=== PATIENT | female | born 1935 | race Hispanic/Latino ===

== ENCOUNTER 2020-05-24 14:41 | Emergency (ER) | payer SELFPAY ==
--- NOTE | 2020-05-24 15:09 | Emergency Department Report ---
ED Neuro Deficit HPI - General Chief Complaint: Neuro Symptoms/Deficit Stated Complaint: STROKE Time Seen by Provider: 05/24/20 14:42 - History of Present Illness Initial Comments: [facility] Date of Service: 05/24/2020 14:25:06 Impression: R55 - Syncope (blackout, fainting, vasovagal attack) Comments/Sign-Out: the patient had an episode of syncope with potentially a low blood pressure in the field per EMS. The patient endorses feeling lightheaded but not passing out but she is not a very reliable historian. She has a left facial droop but is not clear whether or not this is old or new. If family says this is a new finding she's never had before of course she may need additional neurodiagnostic testing and stroke workup. At this is a chronic finding it sounds like the patient syncopized and needs a syncope workup in isolation. No role for acute thrombolytic therapy exam is not consistent with large vessel occlusion. It sounds like she may have had low blood pressure causing her syncope although again more information from family will be helpful.if she truly has had multiple prior ischemic strokes she should be on aspirin unless there is a contraindication Metrics: Last Known Well: 05/24/2020 14:00:00 [facility] Notification Time: 05/24/2020 14:24:35 Arrival Time: 05/24/2020 14:41:00 Stamp Time: 05/24/2020 14:25:06 Time First Login Attempt: 05/24/2020 14:28:43 Symptoms: syncope facial droop NIHSS Start Assessment Time: 05/24/2020 14:56:15 Patient is not a candidate for Alteplase/Activase. Patient was not deemed candidate for Alteplase/Activase thrombolytics because of the patient's only focal deficit is a facial droop the chronicity of which is not known. CT head showed no acute hemorrhage or acute core infarct. Clinical Presentation is not Suggestive of Large Vessel Occlusive Disease Radiologist was not called back for review of advanced imaging because na ED Physician notified of diagnostic impression and management plan on 05/24/2020 15:08:10 Our recommendations are outlined below. Routine Consultation with Inhouse Neurology for Follow up Care Sign Out: Discussed with Emergency Department Provider History of Present Illness: Patient is a 85 year old Female. Patient was brought by EMS for symptoms of syncope facial droop the patient is an 85-year-old woman who cannot provide much in the way meaningful history. She's had multiple prior strokes and has been identification card which is a possible right facial asymmetry. She has a left facial droop per EMS the chronicity of this isn't known. Directly called out to the house for syncopal spell. The patient she says she felt lightheaded and she doesn't think she passed out. She is not aware of any focal deficit even though her left face is drooping. She denies taking any medications for anything including no aspirin Plavix or any other blood thinners in spite of a history of multiple prior strokes. She is not been to this hospital system before all of this needs to be confirmed with family. Past Medical History: Stroke There is NO history of Hypertension There is NO history of Diabetes Mellitus There is NO history of Hyperlipidemia There is NO history of Atrial Fibrillation Anticoagulant use: No Antiplatelet use: No Examination: BP(130s systolic), Pulse(65), Blood Glucose(179) 1A: Level of Consciousness - Alert; keenly responsive + 0 1B: Ask Month and Age - Both Questions Right + 0 1C: Blink Eyes & Squeeze Hands - Performs Both Tasks + 0 2: Test Horizontal Extraocular Movements - Normal + 0 3: Test Visual Drummond - No Visual Loss + 0 4: Test Facial Palsy (Use Grimace if Obtunded) - Partial paralysis (lower face) + 2 5A: Test Left Arm Motor Drift - No Drift for 10 Seconds + 0 5B: Test Right Arm Motor Drift - No Drift for 10 Seconds + 0 6A: Test Left Leg Motor Drift - No Drift for 5 Seconds + 0 6B: Test Right Leg Motor Drift - No Drift for 5 Seconds + 0 7: Test Limb Ataxia (FNF/Heel-Lamb) - No Ataxia + 0 8: Test Sensation - Normal; No sensory loss + 0 9: Test Language/Aphasia - Normal; No aphasia + 0 10: Test Dysarthria - Normal + 0 11: Test Extinction/Inattention - No abnormality + 0 NIHSS Score: 2 Patient/Family was informed the Neurology Consult would happen via TeleHealth consult by way of interactive audio and video telecommunications and consented to receiving care in this manner. Due to the immediate potential for life-threatening deterioration due to underlying acute neurologic illness, I spent 45 minutes providing critical care. This time includes time for face to face visit via telemedicine, review of medical records, imaging studies and discussion of findings with providers, the patient and/or family. Dr Tasia Hankins [facility] Case [id number] ED Review of Systems ROS: Stated complaint: STROKE Other details as noted in HPI ED Neuro Physical Exam - General Suspected Stroke: No Critical care attestation.: If time is entered above; I have spent that time in minutes in the direct care of this critically ill patient, excluding procedure time. ED Disposition Clinical Impression: Syncope Qualifiers: Syncope type: unspecified Qualified Code(s): R55 - Syncope and collapse Disposition: -09 OP ADMIT IP TO THIS HOSP Is pt being admited?: Yes Condition: Stable Instructions: Syncope (ED)
--- NOTE | 2020-05-24 15:20 | Cat Scan Report ---
CT head/brain wo con INDICATION / CLINICAL INFORMATION: 85 years Female; Stroke symptoms. TECHNIQUE: Routine CT head without contrast. All CT scans at this location are performed using CT dos e reduction for ALARA by means of automated exposure control. COMPARISON: None. FINDINGS: BRAIN / INTRACRANIAL CONTENTS: There is extensive cerebral white matter disease most consistent with advanced microvascular angiopathy. There are old infarcts along the anterior left thalamus and right internal capsule. Is also old infarct involving right occipital lobe with encephalomalacia. There is no clear CT evidence of acute intracranial hemorrhage or significant mass effect. There is mild cerebral atrophy with associated mild prominence of the ventricular system ORBITS: No significant abnormality of visualized orbits. SINUSES / MASTOIDS: No significant abnormality in the visualized paranasal sinuses or mastoid air charisse ls. CRANIOCERVICAL JUNCTION: No significant abnormality. ADDITIONAL FINDINGS: None. IMPRESSION: 1. There is extensive microvascular angiopathy and multiple old infarcts as described without CT evid ence of acute intracranial hemorrhage. The study was specified as code stroke and called to Dr. Melendez in the ER at 10:14 PM Central standard time. Signer Name: Kenneth Jung MD Signed: 05/24/2020 3:16 PM Workstation Name: [id number]
--- NOTE | 2020-05-24 15:27 | Emergency Department Report ---
HPI - General Chief Complaint: Neuro Symptoms/Deficit Time Seen by Provider: 05/24/20 14:42 - HPI HPI: This is an 85-year-old female who presents to the emergency department via EMS from home with the initial complaint of a left-sided facial droop and possible syncopal episode. The patient says that she did not pass out but that she was at the dinner table and felt lightheaded but otherwise remembers the event. Initially EMS called and said that the facial droop had started about 30 minutes prior to arrival and that they had a blood pressure of about 56/40. The patient's vital signs had improved and/or normalized by the time she arrived to the emergency department. I spoke to the patient's son and daughter who reiterated that the patient was finishing up their meal in the dining room when suddenly she slumped over, became less responsive, was sweaty, but did not fully pass out. They checked her blood pressure and found it to be extremely high. It improved, when they checked it again, just before EMS arrival. 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 She also has a past medical history of peripheral neuropathy. ED Past Medical Hx - Medications Home Medications: Home Medications Medication Instructions Recorded Confirmed Last Taken Type Nitrofurantoin [place]/M-Cryst 100 mg PO Q12HR #14 capsule 05/24/20 Unknown Rx [Macrobid CAP] ED Review of Systems ROS: Stated complaint: STROKE Other details as noted in HPI Comment: All other systems reviewed and negative Constitutional: diaphoresis. denies: chills, fever Eyes: denies: eye pain, vision change ENT: denies: ear pain, throat pain Respiratory: denies: cough, shortness of breath Cardiovascular: syncope (near syncope). denies: chest pain Gastrointestinal: denies: abdominal pain, vomiting Genitourinary: denies: dysuria, discharge Musculoskeletal: denies: back pain, arthralgia Skin: denies: rash, lesions Neurological: other (dizziness/lightheaded/near syncope) Physical Exam - Physical Exam Physical Exam: GENERAL: The patient is well-developed well-nourished. HENT: Normocephalic. Atraumatic. Patient has moist mucous membranes. EYES: Extraocular motions are intact. No nystagmus. NECK: Supple. Trachea is midline. CHEST/LUNGS: Clear to auscultation. There is no respiratory distress noted. HEART/CARDIOVASCULAR: Regular. There is no tachycardia. There is no murmur. ABDOMEN: Abdomen is soft, nontender. Patient has normal bowel sounds. SKIN: Skin is warm and dry. NEURO: The patient is awake, alert, and cooperative. No acute motor or sensory deficits. 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 MUSCULOSKELETAL: There is no tenderness or deformity. There is no limitation range of motion. ED Medical Decision Making - Lab Data Result diagrams: 05/24/20 15:06 05/24/20 15:06 Lab Results 05/24/20 05/24/20 05/24/20 Range/Units 15:06 15:06 15:06 WBC 6.7 (4.5-11.0) K/mm3 RBC 4.53 (3.65-5.03) M/mm3 Hgb 14.3 (10.1-14.3) gm/dl Hct 41.9 (30.3-42.9) % MCV 92 (79-97) fl MCH 32 (28-32) pg MCHC 34 (30-34) % RDW 14.3 (13.2-15.2) % Plt Count 172 (140-440) K/mm3 Lymph % (Auto) 18.9 (13.4-35.0) % [place] % (Auto) 9.2 H (0.0-7.3) % Eos % (Auto) 3.5 (0.0-4.3) % Baso % (Auto) 1.2 (0.0-1.8) % Lymph # (Auto) 1.3 (1.2-5.4) K/mm3 [place] # (Auto) 0.6 (0.0-0.8) K/mm3 Eos # (Auto) 0.2 (0.0-0.4) K/mm3 Baso # (Auto) 0.1 (0.0-0.1) K/mm3 Seg Neutrophils % 67.2 (40.0-70.0) % Seg Neutrophils # 4.5 (1.8-7.7) K/mm3 PT 14.1 (12.2-14.9) Sec. INR 1.10 (0.87-1.13) APTT 32.9 (24.2-36.6) Sec. Thrombin Time 17.0 (15.1-19.6) Sec. Sodium 133 L (137-145) mmol/L Potassium 3.9 (3.6-5.0) mmol/L Chloride 99.2 (98-107) mmol/L Carbon Dioxide 22 (22-30) mmol/L Anion Gap 16 mmol/L BUN 23 H (7-17) mg/dL Creatinine 1.3 H (0.6-1.2) mg/dL Estimated GFR 39 ml/min BUN/Creatinine Ratio 18 % Glucose 122 H (65-100) mg/dL Calcium 9.2 (8.4-10.2) mg/dL Total Bilirubin 0.30 (0.1-1.2) mg/dL AST 36 (5-40) units/L ALT 35 (7-56) units/L Alkaline Phosphatase 78 (35-129) units/L Total Creatine Kinase 34 (30-135) units/L CK-MB (CK-2) 1.3 (0.0-4.0) ng/mL CK-MB (CK-2) Rel Index 3.8 (0-4) Troponin T < 0.010 (0.00-0.029) ng/mL Total Protein 7.6 (6.3-8.2) g/dL Albumin 3.7 L (3.9-5) g/dL Albumin/Globulin Ratio 0.9 % TSH (0.270-4.200) mlU/mL Urine Color (Yellow) Urine Turbidity (Clear) Urine pH (5.0-7.0) Ur Specific Murdo (1.003-1.030) Urine Protein (Negative) mg/dL Urine Glucose (UA) (Negative) mg/dL Urine Ketones (Negative) mg/dL Urine Blood (Negative) Urine Nitrite (Negative) Urine Bilirubin (Negative) Urine Urobilinogen (<2.0) mg/dL Ur Leukocyte Esterase (Negative) Urine WBC (Auto) (0.0-6.0) /HPF Urine RBC (Auto) (0.0-6.0) /HPF U Epithel Cells (Auto) (0-13.0) /HPF Urine Bacteria (Auto) (Negative) /HPF Urine Mucus /HPF Plasma/Serum Alcohol (0-0.07) % 05/24/20 05/24/20 05/24/20 Range/Units 15:06 15:06 16:55 WBC (4.5-11.0) K/mm3 RBC (3.65-5.03) M/mm3 Hgb (10.1-14.3) gm/dl Hct (30.3-42.9) % MCV (79-97) fl MCH (28-32) pg MCHC (30-34) % RDW (13.2-15.2) % Plt Count (140-440) K/mm3 Lymph % (Auto) (13.4-35.0) % [place] % (Auto) (0.0-7.3) % Eos % (Auto) (0.0-4.3) % Baso % (Auto) (0.0-1.8) % Lymph # (Auto) (1.2-5.4) K/mm3 [place] # (Auto) (0.0-0.8) K/mm3 Eos # (Auto) (0.0-0.4) K/mm3 Baso # (Auto) (0.0-0.1) K/mm3 Seg Neutrophils % (40.0-70.0) % Seg Neutrophils # (1.8-7.7) K/mm3 PT (12.2-14.9) Sec. INR (0.87-1.13) APTT (24.2-36.6) Sec. Thrombin Time (15.1-19.6) Sec. Sodium (137-145) mmol/L Potassium (3.6-5.0) mmol/L Chloride (98-107) mmol/L Carbon Dioxide (22-30) mmol/L Anion Gap mmol/L BUN (7-17) mg/dL Creatinine (0.6-1.2) mg/dL Estimated GFR ml/min BUN/Creatinine Ratio % Glucose (65-100) mg/dL Calcium (8.4-10.2) mg/dL Total Bilirubin (0.1-1.2) mg/dL AST (5-40) units/L ALT (7-56) units/L Alkaline Phosphatase (35-129) units/L Total Creatine Kinase (30-135) units/L CK-MB (CK-2) (0.0-4.0) ng/mL CK-MB (CK-2) Rel Index (0-4) Troponin T (0.00-0.029) ng/mL Total Protein (6.3-8.2) g/dL Albumin (3.9-5) g/dL Albumin/Globulin Ratio % TSH 3.260 (0.270-4.200) mlU/mL Urine Color Yellow (Yellow) Urine Turbidity Cloudy (Clear) Urine pH 6.0 (5.0-7.0) Ur Specific Murdo 1.013 (1.003-1.030) Urine Protein 30 mg/dl (Negative) mg/dL Urine Glucose (UA) Neg (Negative) mg/dL Urine Ketones Neg (Negative) mg/dL Urine Blood Neg (Negative) Urine Nitrite Pos (Negative) Urine Bilirubin Neg (Negative) Urine Urobilinogen 2.0 (<2.0) mg/dL Ur Leukocyte Esterase Lg (Negative) Urine WBC (Auto) 160.0 H (0.0-6.0) /HPF Urine RBC (Auto) 3.0 (0.0-6.0) /HPF U Epithel Cells (Auto) 4.0 (0-13.0) /HPF Urine Bacteria (Auto) 2+ (Negative) /HPF Urine Mucus Few /HPF Plasma/Serum Alcohol < 0.01 (0-0.07) % - EKG Data -: EKG Interpreted by Ut EKG shows normal: sinus rhythm (PACs), axis, intervals (Mild prolongation of WA interval), QRS complexes, ST-T waves Rate: normal - EKG Data When compared to previous EKG there are: previous EKG unavailable Interpretation: other (Sinus rhythm with PACs. Rate of 76 bpm, normal axis, prolonged WA interval. No ST elevation RI) - Radiology Data Radiology results: report reviewed CT head/brain wo con INDICATION / CLINICAL INFORMATION: 85 years Female; Stroke symptoms. TECHNIQUE: Routine CT head without contrast. All CT scans at this location are performed using CT dose reduction for ALARA by means of automated exposure control. COMPARISON: None. FINDINGS: BRAIN / INTRACRANIAL CONTENTS: The re is extensive cerebral white matter disease most consistent with advanced microvascular angiopathy. There are old infarcts along the anterior left thalamus and right internal capsule. Is also old infarct involving right occipital lobe with encephalomalacia. There is no clear CT evidence of acute i ntracranial hemorrhage or significant mass effect. There is mild cerebral atrophy with associated mild prominence of the ventricular system ORBITS: No significant abnormality of visualized orbits. SINUSES / MASTOIDS: No significant abnormality in the visualized paranasal sinuses or mastoid air cells. CRANIOCERVICAL JUNCTION: No significant abnormality. ADDITIONAL FINDINGS: None. IMPRESSION: 1. There is extensive microvascular angiopathy and multiple old infarcts as described without CT evidence of acute intracranial hemorrhage. - Medical Decision Making This patient presents to the emergency department after having a near syncopal or transient unresponsive episode, witnessed by family, just prior to presentation. Since being in the emergency department the patient has been awake, alert, oriented and has no complaints. The patient says that she re members the entire event. Initially there was complaint, per EMS, that there was a new left-sided facial droop. The patient was made a code stroke. CT scan of the head without contrast does not show any acute bleed, large territorial infarct, or any other acute process. She was seen by the telemedicine neurologist, Dr. Hankins, who is full consult is in the chart. The neurologist felt that this was most likely a syncopal or near syncopal episode as long as there was not a new facial droop. I spoke with the patient's family who says that she has a history of Maria's palsy and does have a chronic left-sided facial droop. The rest the patient's labs have been unremarkable including CBC, m etabolic panel, TSH, troponin, but the patient did have a urinary tract infection seen on urinalysis. She will be treated with Macrobid twice daily x7 days. Patient does have some hypertension but otherwise her vital signs have been reassuring throughout her ED course including being afebrile. She has been reevaluated multiple times over greater than 3.5 hours and there has been no return of any syncopal or near syncopal episodes, any acute neurological deficits, and the patient has remained stable throughout her ED course. Both the patient, and her family, are asking for discharge home. The patient does not walk at baseline and has a wheelchair. They have been instructed to follow- up with the primary care physician and to return to the closest emergency department with any further syncopal episodes, any neurological deficits, worsening of her symptoms, or with any acute distress. Critical Care Time: No Critical care attestation.: If time is entered above; I have spent that time in minutes in the direct care of this critically ill patient, excluding procedure time. ED Disposition Clinical Impression: Near syncope Hypertension Qualifiers: Hypertension type: essential hypertension Qualified Code(s): I10 - Essential (primary) hypertension UTI (urinary tract infection) Qualifiers: Urinary tract infection type: acute cystitis Hematuria presence: without hematuria Qualified Code(s): N30.00 - Acute cystitis without hematuria Disposition: TO HOME OR SELFCARE Is pt being admited?: No Condition: Stable Instructions: Near-Syncope, Urinary Tract Infection, Adult, Hypertension, Adult, Syncope (ED), Hypertension (ED) Additional Instructions: Please follow-up with your primary care physician in the next few days. Take the antibiotics as prescribed. Take all of your medication as prescribed. Return to the emergency department with any worsening of your symptoms, new or concerning symptoms not addressed during this current emergency department visit, or with any acute distress. Prescriptions: Nitrofurantoin [place]/M-Cryst [Macrobid CAP] 100 mg PO Q12HR #14 capsule Referrals: PRIMARY CAREMD [Primary Care Provider] - 2-3 Days Time of Disposition: 18:04
[2020-05-24 15:37] LABS: Basophils # (Auto) 0.1 K/mm3 (0.0-0.1); Basophils % (Auto) 1.2 % (0.0-1.8); Eosinophils # (Auto) 0.2 K/mm3 (0.0-0.4); Eosinophils % (Auto) 3.5 % (0.0-4.3); Hematocrit 41.9 % (30.3-42.9); Hemoglobin 14.3 gm/dl (10.1-14.3); Lymphocytes # (Auto) 1.3 K/mm3 (1.2-5.4); Lymphocytes % (Auto) 18.9 % (13.4-35.0); Mean Corpuscular HGB Conc 34 % (30-34); Mean Corpuscular Volume 92 fl (79-97); Monocytes # (Auto) 0.6 K/mm3 (0.0-0.8); Monocytes % (Auto) 9.2 % (0.0-7.3); Platelet Count 172 K/mm3 (140-440); Red Blood Count 4.53 M/mm3 (3.65-5.03); Red Cell Distribution Width 14.3 % (13.2-15.2)
[2020-05-24 15:47] LABS: INR 1.1 (0.87-1.13)
[2020-05-24 15:48] LABS: Partial Thromboplastin Time 32.9 Sec. (24.2-36.6)
[2020-05-24 16:10] LABS: Alanine Aminotransferase 35 units/L (7-56); Albumin 3.7 g/dL (3.9-5); BUN/Creatinine Ratio 18; Blood Urea Nitrogen 23 mg/dL (7-17); Calcium 9.2 mg/dL (8.4-10.2); Creatine Kinase MB 1.3 ng/mL (0.0-4.0); Hemolysis Index 12
[2020-05-24 17:13] LABS: Bilirubin,Urine NEG (Negative); Blood,Urine NEG (Negative); Color,Urine Yellow (Yellow); Mucus,Urine FEW /HPF
[2020-05-24 17:16] LABS: Bacteria,Urine 2+ /HPF (Negative)
[2020-05-24] MEDS ORDERED: NITROFURANTOIN MONOHYD/M-CRYST 100 MG CAP PO ONE (17:20)
[2020-05-24 19:37] VITALS: BP 151/80
== END 2020-05-24 19:38 | disposition home or self-care (01) ==
LOC: ED 14:41
DX: R55 Syncope and collapse (principal); I10 Essential (primary) hypertension; N39.0 Urinary tract infection, site not specified; Z79.899 Other long term (current) drug therapy
CPT/HCPCS: 36415; 70450; 80053; 80320; 81001; 82550; 82553; 82962; 84443; 84484; 85025; 85610; 85670; 85730; 93005; G0480